=== PATIENT | male | born 2000 | race African-American/Black ===

== ENCOUNTER 2023-03-09 22:37 | Emergency (ER) | payer OTHER ==
[~2023-03-09] VITALS: Ht 182.9 cm; Wt 84.4 kg
[2023-03-09 22:39] VITALS: TEMP 98.5
[2023-03-10] MEDS ORDERED: CEPH-558 PO (00:15)
[2023-03-10] MEDS ORDERED: DOXY-354 PO (00:15)
[2023-03-10] MEDS ORDERED: DOXYCYCLINE HYCLATE 100 MG TABLET PO ONE (00:15)
[2023-03-10] MEDS ORDERED: CEPHALEXIN MONOHYDRATE 500 MG CAPSULE PO ONE (00:15)
[2023-03-10 00:36] VITALS: BP 147/83; PULSE 83; RESP 14
== END 2023-03-10 00:37 | disposition home or self-care (01) ==
LOC: EMS 22:38
DX: L73.2 Hidradenitis suppurativa (principal); F17.210 Nicotine dependence, cigarettes, uncomplicated; F12.90 Cannabis use, unspecified, uncomplicated
CPT/HCPCS: 99283